=== PATIENT | male | born 1935 | race Caucasian/White ===

== ENCOUNTER 2017-04-08 05:53 | Inpatient (IN) | payer MEDICARE ==
[~2017-04-08] VITALS: Ht 177.8 cm; Wt 97.0 kg
[2017-04-08] MEDS ORDERED: THROMBIN 5,000 UNIT VIAL TP ONE (06:13)
[2017-04-08] MEDS ORDERED: BUPIVACAINE/PF-EPI 0.5% 1:200K ONE (06:13)
[2017-04-08] MEDS ORDERED: BACITRACIN 50,000 UNIT ONE (06:13)
[2017-04-08 06:39] VITALS: BP 150/82
[2017-04-08] MEDS ORDERED: LISI-170 PO (07:00)
[2017-04-08] MEDS ORDERED: ATOR40TA78 PO (07:00)
[2017-04-08] MEDS ORDERED: WARF2.5T PO (07:00)
[2017-04-08] MEDS ORDERED: HYDR25TA6 PO (07:00)
[2017-04-08] MEDS ORDERED: OMEG1CAP12 PO (07:00)
[2017-04-08] MEDS ORDERED: HYDR-882 PO (07:00)
[2017-04-08] MEDS ORDERED: METO-93 PO (07:00)
[2017-04-08] MEDS ORDERED: TEMA30CA PO (07:00)
[2017-04-08] MEDS ORDERED: VIT1CAPS16 PO (07:00)
[2017-04-08] MEDS ORDERED: LACTATED RINGERS 1,000 ML IV SCH (07:02)
[2017-04-08] MEDS ORDERED: LIDOCAINE 1%, 2ML SQ PRN (07:30)
[2017-04-08] MEDS ORDERED: FENTANYL PF 250 MCG/5ML ONE ×3 (07:41→08:16)
[2017-04-08] MEDS ORDERED: ONDANSETRON 2MG/ML, 2ML IVPush PRN (09:00)
[2017-04-08] MEDS ORDERED: ACETAMINOPHEN 325 MG TABLET PO PRN (09:00)
[2017-04-08] MEDS ORDERED: OXYcodone 5 MG/5 ML ORAL.SOL UDC PO PRN (09:00)
[2017-04-08] MEDS ORDERED: HYDROmorphone 1 MG/ML, 1ML IV PRN (09:00)
[2017-04-08] MEDS ORDERED: LABETALOL 5MG/ML, 20ML IV PRN (09:00)
[2017-04-08] MEDS ORDERED: FENTANYL PF 100 MCG/2ML ONE (09:45)
[2017-04-08] MEDS ORDERED: OXYcodone 5 MG/5 ML ORAL.SOL UDC ONE (09:45)
[2017-04-08] MEDS: FENTANYL PF 100 MCG/2ML IV PRN ×2 (10:06→10:20)
[2017-04-08] MEDS ORDERED: DIPHENHYDRAMINE 50 MG/ML, 1ML IM PRN (11:30)
[2017-04-08] MEDS ORDERED: HYDROmorphone 2MG TABLET PO PRN (11:30)
[2017-04-08] MEDS ORDERED: DIPHENHYDRAMINE 50 MG/ML, 1ML IVPush PRN (11:30)
[2017-04-08] MEDS ORDERED: HYDROmorphone 2 MG/ML, 1ML IM PRN (11:30)
[2017-04-08] MEDS ORDERED: DIAZEPAM 5 MG/ML, 2ML IV PRN (11:30)
[2017-04-08] MEDS ORDERED: METHOCARBAMOL 750 MG TABLET PO PRN (11:30)
[2017-04-08] MEDS ORDERED: MAGNESIUM HYDROXIDE 8%, 30ML UDC PO PRN (11:30)
[2017-04-08] MEDS ORDERED: BISACODYL 10 MG SUPP PR PRN (11:30)
[2017-04-08] MEDS ORDERED: ONDANSETRON 2MG/ML, 2ML IV PRN (11:30)
[2017-04-08] MEDS ORDERED: OXYcodone/APAP 5/325MG TABLET PO PRN (11:30)
[2017-04-08] MEDS ORDERED: PROMETHAZINE 25 MG/ML, 1ML IM PRN (11:30)
[2017-04-08] MEDS ORDERED: DIAZEPAM 5 MG TABLET PO PRN (11:30)
[2017-04-08] MEDS ORDERED: TEMAZEPAM 30 MG CAPSULE PO PRN (11:30)
[2017-04-08] MEDS ORDERED: DIPHENHYDRAMINE 50 MG CAPSULE PO PRN (11:30)
[2017-04-08 14:05] VITALS: BP 156/92
[2017-04-08] MEDS: NS + 20MEQ KCL 1,000 ML IV SCH (16:05)
[2017-04-08] MEDS: CEFAZOLIN PMX 1GM/50ML 50 ML IVPB SCH ×2 (16:05→22:39)
[2017-04-08] MEDS ORDERED: ROCURONIUM 10 MG/ML ONE (16:11)
[2017-04-08] MEDS ORDERED: ONDANSETRON 2MG/ML, 2ML ONE (16:11)
[2017-04-08] MEDS ORDERED: CEFAZOLIN 1,000 MG ONE (16:11)
[2017-04-08] MEDS ORDERED: PROPOFOL 10 MG/ML, 20ML ONE (16:11)
[2017-04-08] MEDS ORDERED: EPHEDRINE 50 MG/ML, 1ML ONE (16:11)
[2017-04-08] MEDS ORDERED: DEXAMETHASONE 4 MG/ML, 5ML ONE (16:11)
[2017-04-08 16:18] VITALS: BP 173/71
[2017-04-08] MEDS: METOPROLOL SUCCINATE 50 MG TAB.ER.24H PO SCH (18:08)
[2017-04-08 19:59] VITALS: BP 121/66
[2017-04-08] MEDS ORDERED: ZOLPIDEM 5MG TABLET PO PRN (21:00)
[2017-04-08] MEDS: MULTIVITAMINS/MINERALS TABLET PO SCH (21:18)
[2017-04-08] MEDS: ATORVASTATIN 40 MG TABLET PO SCH (21:18)
[2017-04-08] MEDS: LISINOPRIL 20 MG TABLET PO SCH (21:19)
[2017-04-09 00:03] VITALS: BP 132/94
[2017-04-09] MEDS: HYDROcodone/APAP 5/325 TABLET PO PRN ×3 (01:32→21:04)
[2017-04-09 04:00] VITALS: BP 127/83
[2017-04-09] MEDS: NS + 20MEQ KCL 1,000 ML IV SCH ×3 (04:10→20:50)
[2017-04-09] MEDS ORDERED: METOPROLOL SUCCINATE 50 MG TAB.ER.24H PO SCH (06:00)
[2017-04-09 06:50] VITALS: BP_SYST 142; BP_SYST 90; BP_DIAS 59; BP_DIAS 88
[2017-04-09] MEDS: LISINOPRIL 20 MG TABLET PO SCH (08:40)
[2017-04-09] MEDS: HYDROCHLOROTHIAZIDE 25 MG TABLET PO SCH (08:40)
[2017-04-09] MEDS: MULTIVITAMINS/MINERALS TABLET PO SCH ×2 (08:40→20:50)
[2017-04-09] MEDS: SENNA/DOCUSATE TABLET PO SCH (08:40)
[2017-04-09] MEDS ORDERED: SENNA/DOCUSATE TABLET PO SCH (09:00)
[2017-04-09] MEDS ORDERED: LISINOPRIL 20 MG TABLET PO SCH (09:00)
[2017-04-09] MEDS ORDERED: HYDR-3240 PO (10:05)
[2017-04-09] MEDS ORDERED: TIZA4CAP2 PO (10:44)
[2017-04-09 13:37] VITALS: BP 124/68
[2017-04-09 17:37] VITALS: BP 122/62
[2017-04-09] MEDS: METOPROLOL SUCCINATE 50 MG TAB.ER.24H PO SCH (17:38)
[2017-04-09 20:02] VITALS: BP 117/67
[2017-04-09] MEDS: ATORVASTATIN 40 MG TABLET PO SCH (20:50)
[2017-04-10 01:10] VITALS: BP 115/71
[2017-04-10] MEDS: HYDROcodone/APAP 5/325 TABLET PO PRN ×2 (01:58→06:19)
[2017-04-10 07:45] VITALS: BP 136/91
[2017-04-10] MEDS: HYDROCHLOROTHIAZIDE 25 MG TABLET PO SCH (09:52)
[2017-04-10] MEDS: SENNA/DOCUSATE TABLET PO SCH (09:53)
[2017-04-10] MEDS: MULTIVITAMINS/MINERALS TABLET PO SCH (09:53)
[2017-04-10] MEDS: LISINOPRIL 20 MG TABLET PO SCH (09:53)
== END 2017-04-10 13:37 | disposition home or self-care (01) | DRG 517 ==
LOC: OUT 05:53 → 4NOR 11:07 → OUT 11:28 → 4NOR 11:29
PROVIDERS: ADMIT Neurological Surgery; ATTEND Neurological Surgery
PROC: 01N80ZZ Release Thoracic Nerve, Open Approach (ICD-10-PCS; 2017-04-08)
PROC: 01N10ZZ Release Cervical Nerve, Open Approach (ICD-10-PCS; principal; 2017-04-08 08:00)
DX: M48.02 Spinal stenosis, cervical region (principal); M47.22 Other spondylosis with radiculopathy, cervical region; Z95.0 Presence of cardiac pacemaker
CPT/HCPCS: 36415; 72040; 85610; C1713; J0690; J1100; J2270; J2405; J2704; J3010; J3480; J3490; J7120